=== PATIENT | male | born 1965 | race Caucasian/White ===

== ENCOUNTER 2018-04-29 06:40 | Inpatient (IN) | payer OTHER ==
[~2018-04-29] VITALS: Ht 177.8 cm; Wt 182.3 kg
[2018-04-29] VITALS (18 sets, daily range): BP systolic 105–189; BP diastolic 40–110
--- NOTE | ~2018-04-29 | EKG ---
[address] [address] ELECTROCARDIOGRAM REPORT Name: HECTOR SERNA Room #: 246-P ADM IN M.R.#: [id number] Admission: 04/29/18 Attend Phys: Jeramie Reynoso MD Discharge: Date of : 63 Report #: [id number] THIS REPORT FOR: //name// [facility] ED Test Date: 2018-04-29 Test Time: 07:16:08 Pat Name: HECTOR SERNA Department: Room: 246 Gender: M Rental Car Deliverer: ANDREW : 1965 Requested By: Clinton Poon Order Number: [id number] MD: Jerardo Min Measurements Intervals [place] Rate: 98 P: 71 IN: 153 QRS: 53 QRSD: 87 T: 64 QT: 349 QTc: 446 Interpretive Statements Sinus rhythm Nonspecific ST-T wave changes Compared to ECG 08/25/2013 03:02:31 No significant changes Electronically Signed On 04-29-2018 12:03:22 STAFF ATTORNEY by Jerardo Min [email or web address] <ELECTRONICALLY SIGNED> By: Jerardo Min MD 04/29/18 1203 5 5 Jerardo Min MD /EPI
[~2018-04-29 06:40] MED LIST: ACETAMINOPHEN650 M5 PO; AMBIEN 10 MG TA10 MG PO; AMBIEN5 MG; BUSPIRONE HCL5 MG PO; CLONAZEPAM2 MG PO; COLACE100 MG PO; CYCLOBENZAPRINE10 MG PO; LACTULOSE20 GM/30 M PO; METHADOSE10 MG PO; PREDNISONE 10 M10 M1; REMERON15 MG PO; SEROQUEL 50 MG50 M1 NG; TRAMADOL 50 MG50 MG PO
[2018-04-29 07:00] LABS: HEMATOCRIT 41.7 % (42.0-52.0); HEMOGLOBIN 14.3 gm/dL (14.0-18.0); MCH 32.3 pg (26.0-34.0); MCHC 34.3 g/dL (28.0-37.0); MCV 94.2 fL (80.0-100.0); RBC 4.42 mil/uL (4.50-6.00); RDW 13.7 % (10.5-14.5); WBC 9.5 thou/uL (4.0-11.0)
[2018-04-29 07:10] LABS: ANION GAP 5 mmol/L (7-16); BUN 18 mg/dL (7-18); CALCIUM 9.3 mg/dL (8.5-10.1); CHLORIDE 106 mmol/L (98-107); CO2 30 mmol/L (21-32); GLUCOSE 112 mg/dL (74-106); SALICYLATE < 2.8 mg/dL (2.8-20.0); SODIUM 141 mmol/L (136-145)
[2018-04-29 07:11] LABS: POTASSIUM 4.3 mmol/L (3.5-5.1)
[2018-04-29] MEDS ORDERED: NORCO 10-325 T1 EACH PO (07:19)
[2018-04-29] MEDS ORDERED: METHADONE HCL 110 M1 PO (07:20)
[2018-04-29 07:21] LABS: URINE BILIRUBIN NEGATIVE (Negative); URINE BLOOD NEGATIVE (Negative); URINE CLARITY CLEAR; URINE COLOR YELLOW; URINE GLUCOSE-RANDOM* NEGATIVE (Negative); URINE KETONES NEGATIVE (Negative); URINE LEUKOCYTES-REFLEX NEGATIVE (Negative); URINE NITRITE-REFLEX NEGATIVE (Negative); URINE PROTEIN (DIPSTICK) NEGATIVE (Negative); URINE SPECIFIC GRAVITY 1.025 (1.005-1.035); URINE UROBILINOGEN 0.2 E.U./dl (0.2-1.0)
[2018-04-29 07:27] LABS: AMP/METHAMP Negative (Negative); BARBITURATES Negative (Negative); BENZODIAZEPINES Negative (Negative); COCAINE Negative (Negative); METHADONE POSITIVE (Negative); OPIATES POSITIVE (Negative); PCP Negative (Negative)
[2018-04-29] MEDS ORDERED: ALPRAZOLAM XR3 MG PO (08:35)
[2018-04-29] MEDS ORDERED: CELEBREX 200 M200 M1 PO (08:35)
[2018-04-29] MEDS ORDERED: CLONAZEPAM 1 MG1 M1 PO (08:36)
[2018-04-29] MEDS ORDERED: NEURONTIN 300300 M1 PO (08:37)
[2018-04-29] MEDS ORDERED: TOPROL XL50 MG PO (08:37)
[2018-04-29] MEDS ORDERED: REQUIP1 MG PO (08:38)
[2018-04-29] MEDS ORDERED: PROTONIX40 M1 PO (08:38)
[2018-04-29] MEDS ORDERED: RAMIPRIL5 MG PO (08:38)
[2018-04-29] MEDS ORDERED: EFFEXOR XR75 MG PO (08:39)
[2018-04-29 09:06] LABS: BE(vivo) -2.7 mmol/L (-2 to +3); HCO3 29.3 mmol/L (22.0-26.0); sO2 75.7 % (92.0-98.0)
[2018-04-29 09:07] LABS: PO2 54.4 mmHg (80.0-100.0); pH 7.125 (7.360-7.450)
[2018-04-29] MEDS ORDERED: ROBAXIN 750 MG750 M1 PO (11:14)
[2018-04-29 12:08] LABS: BE(vivo) -0.9 mmol/L (-2 to +3); HCO3 27.6 mmol/L (22.0-26.0); PCO2 63.1 mmHg (35.0-45.0); PO2 146.1 mmHg (80.0-100.0); sO2 98.5 % (92.0-98.0)
[2018-04-29 12:09] LABS: pH 7.258 (7.360-7.450)
[2018-04-30] VITALS (23 sets, daily range): BP systolic 130–192; BP diastolic 73–96
[2018-04-30 06:15] LABS: HEMATOCRIT 35.3 % (42.0-52.0); MCH 32.5 pg (26.0-34.0); MCHC 33.8 g/dL (28.0-37.0); MCV 96.1 fL (80.0-100.0); RBC 3.67 mil/uL (4.50-6.00); RDW 13.7 % (10.5-14.5); WBC 12.4 thou/uL (4.0-11.0)
[2018-04-30 06:18] LABS: HEMOGLOBIN 11.9 gm/dL (14.0-18.0)
[2018-04-30 06:23] LABS: CALCIUM 8.5 mg/dL (8.5-10.1); CREATININE 0.9 mg/dL (0.7-1.3); MAGNESIUM 2.1 mg/dL (1.8-2.4); POTASSIUM 4.6 mmol/L (3.5-5.1)
[2018-05-01] VITALS (17 sets, daily range): BP systolic 132–184; BP diastolic 63–95
[2018-05-01 06:49] LABS: HEMATOCRIT 37.5 % (42.0-52.0); HEMOGLOBIN 12.5 gm/dL (14.0-18.0); MCH 31.9 pg (26.0-34.0); MCHC 33.3 g/dL (28.0-37.0); MCV 95.7 fL (80.0-100.0); RBC 3.91 mil/uL (4.50-6.00); RDW 13.6 % (10.5-14.5)
[2018-05-01 06:56] LABS: CALCIUM 8.9 mg/dL (8.5-10.1); CREATININE 0.7 mg/dL (0.7-1.3); MAGNESIUM 1.9 mg/dL (1.8-2.4); POTASSIUM 4.4 mmol/L (3.5-5.1)
[2018-05-02 05:05] VITALS: BP 182/87
[2018-05-02 06:28] LABS: HEMATOCRIT 36.1 % (42.0-52.0); HEMOGLOBIN 12.2 gm/dL (14.0-18.0); MCHC 33.8 g/dL (28.0-37.0); MCV 94.6 fL (80.0-100.0); RBC 3.81 mil/uL (4.50-6.00); RDW 13.7 % (10.5-14.5)
[2018-05-02 06:39] LABS: CALCIUM 9.1 mg/dL (8.5-10.1); CREATININE 0.7 mg/dL (0.7-1.3); MAGNESIUM 2.1 mg/dL (1.8-2.4); POTASSIUM 3.6 mmol/L (3.5-5.1)
[2018-05-02 08:00] VITALS: BP 162/82
== END 2018-05-02 14:56 | disposition left against medical advice (07) | DRG 917 ==
LOC: ER 06:40 → ICU 07:54 → EROBS 07:54 → ICU 09:20 → 4E 05-01 16:01
PROVIDERS: Emergency Medicine; Internal Medicine
PROC: 5A09357 Assistance with Respiratory Ventilation, Less than 24 Consecutive Hours, Continuous Positive Airway Pressure (ICD-10-PCS; principal; 2018-04-29)
PROC: 5A09357 Assistance with Respiratory Ventilation, Less than 24 Consecutive Hours, Continuous Positive Airway Pressure (ICD-10-PCS; 2018-04-30)
PROC: 5A09357 Assistance with Respiratory Ventilation, Less than 24 Consecutive Hours, Continuous Positive Airway Pressure (ICD-10-PCS; 2018-05-01)
DX: T40.3X1A Poisoning by methadone, accidental (unintentional), initial encounter (principal); J96.02 Acute respiratory failure with hypercapnia; R65.11 Systemic inflammatory response syndrome (SIRS) of non-infectious origin with acute organ dysfunction; F32.9 Major depressive disorder, single episode, unspecified; F41.9 Anxiety disorder, unspecified; F17.220 Nicotine dependence, chewing tobacco, uncomplicated; G89.29 Other chronic pain; M54.9 Dorsalgia, unspecified; I10 Essential (primary) hypertension; M54.30 Sciatica, unspecified side; Z53.21 Procedure and treatment not carried out due to patient leaving prior to being seen by health care provider; Z88.0 Allergy status to penicillin; Y92.89 Other specified places as the place of occurrence of the external cause; Z79.899 Other long term (current) drug therapy
CPT/HCPCS: 10078; 10783